=== PATIENT | female | born 1990 | race Caucasian/White ===

== ENCOUNTER 2017-10-10 21:59 | Emergency (ER) | payer MEDICAID, OTHER ==
[2017-10-10 23:15] LABS: RBC URINE 7 /hpf (0-3); URINE BACTERIA RARE (<OCC); URINE BILIRUBIN NEGATIVE (NEGATIVE); URINE BLOOD 1+ (NEGATIVE); URINE COLOR Yellow (YELLOW); URINE GLUCOSE (UA) NORMAL (Normal); URINE KETONE NEGATIVE (NEGATIVE); URINE LEUKOCYTE ESTERASE NEG Leu/uL (Negative); URINE PROTEIN NEGATIVE (NEGATIVE); WBC URINE 1 /hpf (0-5)
[2017-10-10 23:24] LABS: BASO % 0.6 % (0.0-2.0); EOS % 0.5 % (0.0-4.0); LYMPH # 0.8 K/uL (1.0-4.3); MEAN CELL VOLUME 90.8 fL (81.0-99.0); MEAN CORPUSCULAR HEMOGLOBIN 31.3 pg (27.0-31.0); MEAN CORPUSCULAR HGB CONC 34.4 g/dL (33.0-37.0); MEAN PLATELET VOLUME 8.5 fL (7.2-11.7); MONO % 13.8 % (0.0-10.0); NRBC % 0.1 % (0.0-2.0); RED CELL DISTRIBUTION WIDTH 12.9 % (11.5-14.5); WHITE BLOOD COUNT 7.3 K/uL (4.8-10.8)
[2017-10-10 23:25] LABS: CHLORIDE 98 mmol/L (98-107); POTASSIUM 3.3 mmol/L (3.6-5.2); SODIUM 133 mmol/L (132-148)
[2017-10-10 23:27] LABS: GFR AFRICAN-AMERICAN > 60
[2017-10-10 23:28] LABS: ALB/GLOB RATIO 1.5 (1.0-2.1); ALKALINE PHOSPHATASE 88 U/L (38-126); ALT/SGPT 73 U/L (9-52); AST/SGOT 41 U/L (14-36); BLOOD UREA NITROGEN 8 mg/dL (7-17); CALCIUM 8.3 mg/dl (8.6-10.4); CARBON DIOXIDE 26 mmol/L (22-30); GLUCOSE,RANDOM 109 mg/dL (65-105)
--- NOTE | 2017-10-11 00:49 | C.PDOC ---
Time Seen by Provider: 10/10/17 22:50 Chief Complaint (Nursing): Abdominal Pain Past Medical History Vital Signs: Last Vital Signs Temp 99.5 F 10/10/17 22:16 Pulse 101 H 10/10/17 22:16 Resp 20 10/10/17 22:16 BP 113/74 10/10/17 22:16 Pulse Ox 95 10/10/17 22:16 - Medical History PMH: Asthma (childhood) - [facility] Procedures EPISIOTOMY (08/29/13) MONITORING NOS (08/29/13) MANUAL ASSIST DELIV NEC (08/29/13) - Social History Hx Tobacco Use: No Hx Alcohol Use: No Hx Substance Use: No - Immunization History Hx Tetanus Toxoid Vaccination: No Hx Influenza Vaccination: Yes Hx Pneumococcal Vaccination: No ED Course And Treatment - Laboratory Results Result Diagrams: 10/10/17 23:13 10/10/17 23:13 O2 Sat by Pulse Oximetry: 95 Disposition Counseled Patient/Family Regarding: Studies Performed, Diagnosis, Need For Followup, Rx Given - Disposition Referrals: Ayaz Carmona MD [Staff Provider] - Disposition: HOME/ ROUTINE Disposition Time: 00:50 Condition: STABLE Prescriptions: Naproxen 375 mg PO BID PRN #20 tablet PRN Reason: pain Ondansetron [Zofran Odt] 4 mg PO Q8 PRN #12 odt PRN Reason: Nausea/Vomiting Instructions: Viral Syndrome (ED) Forms: [employer] (Croatian) Print Language: ROMANIAN - POA Present On Arrival: None - Clinical Impression Clinical Impression: Abdominal pain, Viral syndrome, Body aches, Sore throat
[2017-10-11 00:54] VITALS: BP 116/64; PULSE 90; RESP 16; TEMP 98.9; O2SAT 100
== END 2017-10-11 00:54 | disposition home or self-care (01) ==
LOC: C.ER 21:59
DX: B34.9 Viral infection, unspecified (principal); R10.9 Unspecified abdominal pain; M79.1 Myalgia; J02.9 Acute pharyngitis, unspecified

== ENCOUNTER 2017-12-14 11:34 | Emergency (ER) | payer MEDICAID ==
[2017-12-14 11:41] VITALS: BP 130/76; PULSE 98; RESP 18; TEMP 98.1; O2SAT 107
[2017-12-14 12:10] LABS: HCG,QUALITATIVE URINE NEGATIVE (NEGATIVE)
[2017-12-14 12:22] LABS: SQUAMOUS EPITHIAL 12 /hpf (0-5); URINE AMORPHOUS SEDIMENT OCC /ul (<OCC); URINE BACTERIA RARE (<OCC); URINE BILIRUBIN NEGATIVE (NEGATIVE); URINE BLOOD 1+ (NEGATIVE); URINE CLARITY Hazy (Clear); URINE COLOR Yellow (YELLOW); URINE GLUCOSE (UA) NORMAL (Normal); URINE LEUKOCYTE ESTERASE 1+ Leu/uL (Negative); URINE NITRATE NEGATIVE (NEGATIVE); URINE PROTEIN NEGATIVE (NEGATIVE); URINE UROBILINOGEN NORMAL mg/dL (0.2-1.0)
[2017-12-14] MEDS ORDERED: Naproxen 550 mg Tab PO STA (12:30)
[2017-12-14] MEDS ORDERED: Naproxen 550 mg Tab PO ONE (12:39)
--- NOTE | 2017-12-14 13:29 | C.PDOC ---
Time Seen by Provider: 12/14/17 12:11 Chief Complaint (Nursing): Abdominal Pain History Per: Patient Onset/Duration Of Symptoms: Days (about 1 week), Intermittent Episodes Current Symptoms Are (Timing): Still Present Severity: Moderate Location Of Pain/Discomfort: LLQ Quality Of Discomfort: Cramping, "Pain" Alleviating Factors: None Additional History Per: Prior Records Abnormal Vaginal Bleeding: No Past Medical History Reviewed: Historical Data, Nursing Documentation, Vital Signs Vital Signs: Last Vital Signs Temp 98.1 F 12/14/17 11:37 Pulse 98 H 12/14/17 11:37 Resp 18 12/14/17 11:37 BP 130/76 12/14/17 11:37 Pulse Ox 107 H 12/14/17 11:37 - Medical History PMH: Asthma (childhood) Surgical History: No Surg Hx - [facility] Procedures EPISIOTOMY (08/29/13) MONITORING NOS (08/29/13) MANUAL ASSIST DELIV NEC (08/29/13) Family History: States: Unknown Family Hx - Social History Hx Tobacco Use: No Hx Alcohol Use: No Hx Substance Use: No - Immunization History Hx Tetanus Toxoid Vaccination: No Hx Influenza Vaccination: No Hx Pneumococcal Vaccination: No Review Of Systems Except As Marked, All Systems Reviewed And Found Negative. Constitutional: Negative for: Fever, Weakness Cardiovascular: Negative for: Chest Pain Respiratory: Negative for: Shortness of Breath Gastrointestinal: Negative for: Vomiting, Diarrhea Genitourinary: Positive for: Pelvic Pain (left). Negative for: Dysuria, Vaginal Discharge, Vaginal Bleeding Musculoskeletal: Negative for: Neck Pain, Back Pain Skin: Negative for: Rash Neurological: Negative for: Weakness, Numbness Physical Exam - Physical Exam Appears: Non-toxic, No Acute Distress Skin: Normal Color, Warm, Dry, No Rash Head: Atraumatic, Normacephalic Eye(s): bilateral: Normal Inspection, PERRL, EOMI Neck: Normal ROM, Supple Cardiovascular: Rhythm Regular Respiratory: Normal Breath Sounds, No Accessory Muscle Use Gastrointestinal/Abdominal: Soft, Tenderness (mild LLQ), No Guarding, No Rebound Back: No CVA Tenderness Extremity: Normal ROM Neurological/Psych: Oriented x3, Normal Motor, Normal Sensation ED Course And Treatment - Laboratory Results Urine POC: Negative Progress Note: I ordered a pelvic US for further evaluation, however I was informed by the staff that the pt walked out during evaluation and prior to going for the US. Disposition - Disposition Disposition: ELOPEMENT - ER ONLY Disposition Time: 13:29 Condition: UNKNOWN - Clinical Impression Clinical Impression: LLQ pain, Patient left before treatment completed
== END 2017-12-14 13:29 | disposition left against medical advice (07) ==
LOC: C.ER 11:34
DX: R10.32 Left lower quadrant pain (principal)

== ENCOUNTER 2018-02-08 10:54 | Emergency (ER) | payer MEDICAID ==
[2018-02-08 10:58] VITALS: BMI 29.2
[2018-02-08 11:01] VITALS: RESP 16; TEMP 99.1; O2SAT 98
[2018-02-08 11:37] LABS: BASO % 0.3 % (0.0-2.0); EOS % 0.1 % (0.0-4.0); HEMOGLOBIN 11.5 g/dL (11.0-16.0); LYMPH # 1.1 K/uL (1.0-4.3); LYMPH % 7.8 % (20.0-40.0); MEAN CELL VOLUME 88.7 fL (81.0-99.0); MEAN CORPUSCULAR HEMOGLOBIN 31.8 pg (27.0-31.0); MEAN CORPUSCULAR HGB CONC 35.9 g/dL (33.0-37.0); MEAN PLATELET VOLUME 8.1 fL (7.2-11.7); MONO # 1.6 K/uL (0.0-0.8); MONO % 11.5 % (0.0-10.0); NEUT # 10.9 K/uL (1.8-7.0); NEUT % 80.3 % (50.0-75.0); PLATELET COUNT 168 K/uL (130-400); RED CELL DISTRIBUTION WIDTH 13.1 % (11.5-14.5); WHITE BLOOD COUNT 13.6 K/uL (4.8-10.8)
--- NOTE | 2018-02-08 11:39 | C.PDOC ---
History Of Present Illness 27 y/o female and currently presents to ED with complaints of constant LLQ pain and left ear pain for 3 days. Patient reports darkened urine and states last LMP was in October. Patient denies dysuria, hematuria, vaginal bleeding, vaginal discharge or any other complaints at this time. No surgical history. Time Seen by Provider: 02/08/18 11:03 Chief Complaint (Nursing): Abdominal Pain History Per: Patient History/Exam Limitations: no limitations Onset/Duration Of Symptoms: Days Current Symptoms Are (Timing): Still Present Location Of Pain/Discomfort: LLQ Past Medical History Reviewed: Historical Data, Nursing Documentation, Vital Signs Vital Signs: Last Vital Signs Temp 99.1 F 02/08/18 10:58 Pulse 127 H 02/08/18 10:58 Resp 16 02/08/18 10:58 BP 139/81 02/08/18 10:58 Pulse Ox 98 02/08/18 11:44 - Medical History PMH: Asthma (childhood) Surgical History: No Surg Hx - [facility] Procedures EPISIOTOMY (08/29/13) MONITORING NOS (08/29/13) MANUAL ASSIST DELIV NEC (08/29/13) Family History: States: No Known Family Hx - Social History Hx Tobacco Use: No Hx Alcohol Use: No Hx Substance Use: No - Immunization History Hx Tetanus Toxoid Vaccination: Yes Hx Influenza Vaccination: No Hx Pneumococcal Vaccination: No Review Of Systems Constitutional: Negative for: Fever, Chills ENT: Positive for: Ear Pain Gastrointestinal: Positive for: Abdominal Pain. Negative for: Nausea, Vomiting Genitourinary: Negative for: Vaginal Discharge, Vaginal Bleeding Skin: Negative for: Rash Physical Exam - Physical Exam Appears: Non-toxic, No Acute Distress Skin: Warm, Dry, No Rash Head: Atraumatic, Normacephalic Eye(s): bilateral: Normal Inspection Ear(s): Bilateral: Normal Oral Mucosa: Moist Neck: Normal ROM, Supple Cardiovascular: Rhythm Regular Respiratory: Normal Breath Sounds, No Rales, No Rhonchi, No Wheezing Gastrointestinal/Abdominal: Soft, Tenderness (Left pelvic ), No Guarding, No Rebound Back: No CVA Tenderness Extremity: Normal ROM, Capillary Refill (<2 seconds) Neurological/Psych: Oriented x3, Normal Speech ED Course And Treatment - Laboratory Results Result Diagrams: 02/08/18 11:27 02/08/18 11:27 O2 Sat by Pulse Oximetry: 98 (RA) Pulse Ox Interpretation: Normal Disposition Counseled Patient/Family Regarding: Studies Performed, Diagnosis, Need For Followup, Rx Given - Disposition Referrals: [facility] [Outside] [facility] [Outside] [facility] [Other] Disposition: HOME/ ROUTINE Disposition Time: 12:59 Condition: IMPROVED Prescriptions: Nitrofurantoin Macrocrystals [Macrobid] 1 cap PO BID #14 cap Instructions: Threatened Miscarriage, Urinary Tract Infection, Adult (DC), Temporomandibular Joint (TMJ) Disorders Forms: [employer] (Mongolian) - Clinical Impression Clinical Impression: TMJ pain dysfunction syndrome, Threatened , UTI in - Scribe Statement The provider has reviewed the documentation as recorded by the Scribgiuliana Yu All medical record entries made by the Scribe were at my direction and personally dictated by me. I have reviewed the chart and agree that the record accurately reflects my personal performance of the history, physical exam, medical decision making, and the department course for this patient. I have also personally directed, reviewed, and agree with the discharge instructions and disposition.
[2018-02-08 11:55] LABS: ALBUMIN 3.6 g/dL (3.5-5.0); ALT/SGPT 72 U/L (9-52); AST/SGOT 51 U/L (14-36); BLOOD UREA NITROGEN 9 mg/dL (7-17); CALCIUM 8.4 mg/dl (8.6-10.4); GFR AFRICAN-AMERICAN > 60; GFR NON-AFRICAN AMERICAN > 60
[2018-02-08 12:02] LABS: SQUAMOUS EPITHIAL 10 /hpf (0-5); URINE BACTERIA MOD (<OCC); URINE BILIRUBIN NEGATIVE (NEGATIVE); URINE BLOOD 2+ (NEGATIVE); URINE CLARITY Hazy (Clear); URINE COLOR Amber (YELLOW); URINE GLUCOSE (UA) NORMAL (Normal); URINE LEUKOCYTE ESTERASE 3+ Leu/uL (Negative); URINE PROTEIN 2+ mg/dL (NEGATIVE)
[2018-02-08] MEDS ORDERED: cefTRIAXone IV 1 gm in Dextros 50 ML IV STA (12:07)
[2018-02-08] MEDS ORDERED: cefTRIAXone IV 1 gm in Dextros 50 ML IVPB ONE (12:14)
[2018-02-08 12:42] LABS: BANDS 3 % (0-2); LYMPHOCYTE 7 % (20-40); MONOCYTE 8 % (0-10); NEUTROPHIL 82 % (50-75); PLATELET ESTIMATE NORMAL (NORMAL); TOTAL CELLS COUNTED 100
--- NOTE | 2018-02-08 12:51 | US ---
Indication: Abdominal pain, rule out ectopic Comparison: None available. Technique: Transabdominal pelvic ultrasound Findings: Uterus measures approximately 13.4 x 6.1 x 9.3 cm. Anteverted. Cervix length measures approximately 3.5 cm. Posterior placenta appears low lying. There is a single intrauterine fetus present. The crown-rump length measures 5.3 cm and is compatible with a gestational age of 12 weeks 0 days. There is heart motion which measured 156.6 BPM. The right ovary is not visualized. The left ovary measures measures approximately 3.1 x 1.6 x 2.2 cm. Blood flow was demonstrated to the left ovary. Impression: Live single intrauterine with estimated gestational age 12 weeks 0 days. heart rate 156.6 bpm. Advise an anomaly screen at 16-18 weeks gestational age Posterior placenta appears low lying, however this cannot be adequately assessed in the 1st trimester. Recommend attention on follow-up imaging. The right ovary is not visualized.
[2018-02-08 13:25] VITALS: BP 126/85; PULSE 84
== END 2018-02-08 13:24 | disposition home or self-care (01) ==
LOC: C.ER 10:54
DX: O23.42 Unspecified infection of urinary tract in pregnancy, second trimester (principal); O20.0 Threatened abortion; O26.891 Other specified pregnancy related conditions, first trimester; M26.629 Arthralgia of temporomandibular joint, unspecified side; Z3A.12 12 weeks gestation of pregnancy
CPT/HCPCS: 76801; 80053; 81001; 84702; 85025; 96365; 99283; J0696

== ENCOUNTER 2018-03-04 23:05 | Emergency (ER) | payer MEDICAID ==
[2018-03-04 23:05] VITALS: BMI 29.2
[2018-03-04 23:17] VITALS: TEMP 98.4
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
[2018-03-04] MEDS ORDERED: Amoxicillin-Clav 875-125 mg Tab PO STA (23:44)
[2018-03-04] MEDS ORDERED: Amoxicillin-Clav 875-125 mg Tab PO ONE (23:51)
[2018-03-05 01:34] VITALS: BP 113/71; PULSE 89; RESP 18
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
[2018-03-06 03:51] VITALS: O2SAT 100
== END 2018-03-05 01:34 | disposition home or self-care (01) ==
LOC: C.ER 23:05
DX: S61.250A Open bite of right index finger without damage to nail, initial encounter (principal); S01.551A Open bite of lip, initial encounter; Y04.1XXA Assault by human bite, initial encounter; O9A.212 Injury, poisoning and certain other consequences of external causes complicating pregnancy, second trimester; Z3A.15 15 weeks gestation of pregnancy

== ENCOUNTER 2018-05-10 14:33 | Emergency (ER) | payer MEDICAID ==
[2018-05-10 14:45] VITALS: BMI 31.9
[2018-05-10 14:47] VITALS: RESP 20; O2SAT 99
--- NOTE | 2018-05-10 15:52 | C.PDOC ---
History Of Present Illness 28yo female, currently 24wks , presents to ED for evaluation of an itchy , idffue rash, present for he past day. She denies any associated abdominal pain , vaginal bleeding or vaginal discharge. She price any precipitant to the rash and states she has not taken any medication to relieve her symptoms. Patient states she has been able to feel the fetus move. She denies any other medical complaints. Time Seen by Provider: 05/10/18 14:54 Chief Complaint (Nursing): Abnormal Skin Integrity History Per: Patient History/Exam Limitations: no limitations Onset/Duration Of Symptoms: Days Current Symptoms Are (Timing): Still Present Quality Of Symptoms: Itching Additional History Per: Patient Past Medical History Reviewed: Historical Data, Nursing Documentation, Vital Signs Vital Signs: Last Vital Signs Temp 99.1 F 05/10/18 16:07 Pulse 88 05/10/18 16:07 Resp 20 05/10/18 16:07 BP 110/72 05/10/18 16:07 Pulse Ox 99 05/10/18 16:07 - Medical History PMH: Asthma (childhood) Surgical History: No Surg Hx - [facility] Procedures EPISIOTOMY (08/29/13) MONITORING NOS (08/29/13) MANUAL ASSIST DELIV NEC (08/29/13) Family History: States: Unknown Family Hx - Social History Hx Tobacco Use: No Hx Alcohol Use: No Hx Substance Use: No - Immunization History Hx Tetanus Toxoid Vaccination: Yes Hx Influenza Vaccination: No Hx Pneumococcal Vaccination: No Review Of Systems Except As Marked, All Systems Reviewed And Found Negative. Constitutional: Negative for: Fever, Chills Gastrointestinal: Negative for: Abdominal Pain Genitourinary: Negative for: Vaginal Discharge, Vaginal Bleeding, Pelvic Pain Skin: Positive for: Rash Physical Exam - Physical Exam Appears: Non-toxic, No Acute Distress Skin: Warm, Dry, Rash (diffuse urticarial erythematous rash) Head: Atraumatic, Normacephalic Eye(s): bilateral: Normal Inspection Oral Mucosa: Moist Neck: Normal ROM, Supple Chest: Symmetrical Cardiovascular: Rhythm Regular Respiratory: Normal Breath Sounds Gastrointestinal/Abdominal: Normal Exam, Soft, No Tenderness Back: Normal Inspection Extremity: Normal ROM, No Pedal Edema, No Deformity Neurological/Psych: Oriented x3 Additional Physical Exam Comments: movement and heartbeat noted with bedside ultrasound. ED Course And Treatment O2 Sat by Pulse Oximetry: 99 (RA) Pulse Ox Interpretation: Normal Medical Decision Making Medical Decision Making: Impression: Urticaria Plan: -- Prednisone 60mg PO -- Benadryl 50mg PO Progress: Patient reports marked improvement in symptoms. Instructed to take medications as prescribed and follow up with PMD in 2-3 days. Disposition Counseled Patient/Family Regarding: Diagnosis, Need For Followup, Rx Given - Disposition Referrals: Ayaz Carmona MD [Staff Provider] - Disposition: HOME/ ROUTINE Disposition Time: 15:51 Condition: STABLE Additional Instructions: follow up with medical clinic within 2 days call to make an appointment take medications as prescribed return to ER if symptoms worsens or progress take benadryl every 6 hours as needed for itching Prescriptions: predniSONE [predniSONE Tab] 50 mg PO DAILY #4 tab Instructions: Skin Rash (DC) Forms: [facility] (Nigerian), General Discharge Instructions - Clinical Impression Clinical Impression: Allergic reaction - Scribe Statement The provider has reviewed the documentation as recorded by the Scribe (Lauryn Parkinson) Provider Attestation: All medical record entries made by the Scribe were at my direction and personally dictated by me. I have reviewed the chart and agree that the record accurately reflects my personal performance of the history, physical exam, medical decision making, and the department course for this patient. I have also personally directed, reviewed, and agree with the discharge instructions and disposition.
[2018-05-10 16:08] VITALS: BP 110/72; PULSE 88; TEMP 99.1
== END 2018-05-10 16:10 | disposition home or self-care (01) ==
LOC: C.ER 14:33
DX: L50.0 Allergic urticaria (principal)